=== PATIENT | female | born 1965 | race Hispanic/Latino ===

== ENCOUNTER 2020-12-13 05:38 | Emergency (ER) | payer BC ==
[~2020-12-13] VITALS: Ht 167.6 cm; Wt 124.7 kg
== END 2020-12-13 06:13 | disposition left against medical advice (07) ==
LOC: ER 05:56
DX: G89.18 Other acute postprocedural pain (principal); R10.13 Epigastric pain; R11.2 Nausea with vomiting, unspecified; E11.9 Type 2 diabetes mellitus without complications
CPT/HCPCS: 93005